=== PATIENT | female | born 1930 | race Caucasian/White ===

== ENCOUNTER 2019-01-03 09:32 | Inpatient (IN) | payer MEDICARE, BC ==
[~2019-01-03] VITALS: Ht 152.4 cm; Wt 70.6 kg
[~2019-01-03 09:32] MED LIST: AMOXICILLIN500 M1 PO; ASCORBIC ACID500 MG PO; ASPIRIN81 MG PO; BETAPACE 80 MG80 MG PO; BREO ELLIPTA 11 EACH INH; BUMETANIDE0.5 MG PO; CALCIUM 600 +1 EAC3 PO; CARDIZEM CD180 MG PO; COZAAR100 MG PO; DEPAKOTE250 MG PO; FLORANEX / LACT1 TAB PO; HYDRALAZINE HCL50 MG PO; HYDROCHLOROTH12.5 M1 PO; KLOR-CON M2020 MEQ PO; LASIX40 MG PO; LEVAQUIN750 MG PO; MOBIC7.5 MG PO; PROZAC10 MG PO; SEROQUEL100 MG PO; TOZAL SOFTGEL1 EACH PO; VITAMIN B-12500 MCG PO; VITAMIN D2000 UNIT PO; ZYRTEC10 MG PO
[2019-01-03] MEDS ORDERED: VITAMIN D31000 UNI2 PO (09:39)
[2019-01-03] MEDS ORDERED: CLARITIN 10 MG10 MG PO (09:40)
[2019-01-03] MEDS ORDERED: CRANBERRY TAB (09:40)
[2019-01-03] MEDS ORDERED: FUROSEMIDE20 MG PO (09:41)
[2019-01-03] MEDS ORDERED: PROTONIX40 MG PO (09:43)
[2019-01-03] MEDS ORDERED: TOPAMAX50 MG PO (09:44)
[2019-01-03] MEDS ORDERED: ZOLOFT100 MG PO (09:45)
[2019-01-03] MEDS ORDERED: ATIVAN0.5 MG PO (09:46)
[2019-01-03] MEDS ORDERED: RESTASIS EACH EYE (09:49)
[2019-01-03] MEDS ORDERED: DEPAKOTE SPRIN125 MG PO (09:53)
[2019-01-03] MEDS ORDERED: CATAPRES0.1 MG PO (09:54)
[2019-01-03] MEDS ORDERED: ALBUTEROL SULF8.5 GM INH (09:55)
--- NOTE | 2019-01-03 10:23 | NUR ---
FSBS 91.
--- NOTE | 2019-01-03 10:24 | NUR ---
IN AND OUT CATH FOR URINE, PATIENT ALLERGIC TO BETADINE, CLEANED WITH WOUD CLENSER, SAMPLE OBTAINED AND SENT TO LAB. PATIENT ROLLED AND CLEANED, BI LAT BUTTOCKS VERY RED, CLEAN ADULT DIAPER PLACED ON PATIENT.
[2019-01-03 10:33] LABS: HEMATOCRIT 38.3 % (36.0-48.0); HEMOGLOBIN 13.2 g/dL (12-16); LYMPHOCYTES 16.5 % (15-50); MCH 32.7 pg (26.0-34.0); MCHC 34.5 g/dL (31.0-37.0); MCV 94.8 fL (80.0-100.0); MEAN PLATELET VOLUME 9.7 fL (7.4-10.4); NEUTROPHILS 72.1 % (40-80); PLATELET COUNT 188 10x3/uL (130-400); RBC 4.04 10x6/uL (4.00-5.40); RDW 12.9 % (11.5-14.5); WBC 10.7 10x3/uL (4.8-10.8)
[2019-01-03 10:35] LABS: APPEARANCE CLEAR (CLEAR); BILIRUBIN NEGATIVE (NEGATIVE); COLOR YELLOW (YELLOW); GLUCOSE NEGATIVE (NEGATIVE); KETONE NEGATIVE (NEGATIVE); NITRITE NEGATIVE (NEGATIVE); PROTEIN NEGATIVE (NEGATIVE); SPECIFIC GRAVITY 1.015 (1.005-1.020); UROBILINOGEN NORMAL (NORMAL)
[2019-01-03 10:36] LABS: RED CELLS - URINE RARE /hpf (0-5)
[2019-01-03 10:38] LABS: UDS - AMPHET NEGATIVE QUAL (NEGATIVE); UDS - BARB NEGATIVE QUAL (NEGATIVE); UDS - BENZO NEGATIVE QUAL (NEGATIVE); UDS - COCAINE NEGATIVE QUAL (NEGATIVE); UDS - OPIATE NEGATIVE QUAL (NEGATIVE); UDS - PCP NEGATIVE QUAL (NEGATIVE); UDS - THC NEGATIVE QUAL (NEGATIVE)
[2019-01-03 10:45] LABS: APTT 25.7 SECONDS (22.8-39.4); PROTIME 12.7 SECONDS (11.6-15.0)
[2019-01-03 10:59] LABS: ALBUMIN 3.6 g/dL (3.4-5.0); ALKALINE PHOSPHATASE 115 U/L (46-116); ALT (SGPT) 21 U/L (10-68); BILIRUBIN - TOTAL 0.55 mg/dL (0.2-1.3); CALC OSMOLALITY 292 mosm/kg (275-300); CALCIUM 8.9 mg/dL (8.5-10.1); CARBON DIOXIDE 29.7 mmol/L (21.0-32.0); CHLORIDE - SERUM 108 mmol/L (98-107); CKMB 1.1 U/L (0.0-3.6); CREATINE KINASE 49 UL (21-215); CREATININE - SERUM 2.1 mg/dL (0.6-1.3); GLUCOSE 94 mg/dL (74-106); MAGNESIUM - SERUM 1.5 mg/dL (1.8-2.4); PROTEIN - SERUM 7.1 g/dL (6.4-8.2); SODIUM 145 mmol/L (136-145); THYROID STIMULATING HORMONE 1.22 uIU/mL (0.36-3.74); TROPONIN-I 0.028 ng/mL (0.000-0.060); UREA NITROGEN 25 mg/dL (7-18); VALPROIC ACID (DEPAKOTE) 14.4 ug/mL (50.0-100.0); eGFR NON AFRICAN AMERICAN 23 mL/min (90-120)
[2019-01-03 11:01] LABS: POTASSIUM - SERUM 2.8 mmol/L (3.5-5.1)
--- NOTE | 2019-01-03 12:07 | NUR ---
PATIENT ROLLED AND CLEANED, SMALL AMOUNT LOOSE STOOL, CLEAN DIAPER AND LINENS PLACED ON PATIENT.
[2019-01-03 15:45] VITALS: BP 162/77; Ht 152.4 cm; Wt 70.6 kg
[2019-01-03 18:15] VITALS: BP 133/60
--- NOTE | 2019-01-03 19:15 | NUR ---
EVENING ROUNDS COMPLETED. PATIENT RESTING IN BED WITH EYES CLOSED. RESPONDS TO VOICE. NO SIGNS OF DISTRESS. NO C/O PAIN OR DISCOMFORT. DENIES HAVING ANY NEEDS AT THIS TIME. WILL CONTINUE TO MONITOR.
[2019-01-03 19:42] VITALS: BP 170/73
[2019-01-03 23:49] VITALS: BP 120/60
--- NOTE | 2019-01-04 04:00 | NUR ---
PATIENT RESTING IN BED WITH EYES CLOSED. NO SIGNS OF DISTRESS. BED IN LOWEST POSITION. SIDE RAILS UP. CALL LIGHT IN REACH. WILL CONTINUE TO MONITOR.
[2019-01-04 04:48] VITALS: BP 160/66
[2019-01-04 06:09] LABS: BASOPHILS 0.2 % (0-2); HEMATOCRIT 35.4 % (36.0-48.0); HEMOGLOBIN 11.6 g/dL (12-16); IMMATURE GRANULOCYTES 0.2 % (0-5); LYMPHOCYTES 15.6 % (15-50); MCH 32.3 pg (26.0-34.0); MCHC 32.8 g/dL (31.0-37.0); MEAN PLATELET VOLUME 10.6 fL (7.4-10.4); MONOCYTES 11.5 % (2-11); NEUTROPHILS 70.5 % (40-80); PLATELET COUNT 176 10x3/uL (130-400); RBC 3.59 10x6/uL (4.00-5.40); RDW 13.3 % (11.5-14.5); WBC 8.5 10x3/uL (4.8-10.8)
[2019-01-04 06:12] LABS: MCV 98.6 fL (80.0-100.0)
[2019-01-04 06:47] LABS: ANION GAP 10.4 mmol/L (8-16); CALCIUM 8.6 mg/dL (8.5-10.1); CARBON DIOXIDE 27.2 mmol/L (21.0-32.0); MAGNESIUM - SERUM 1.5 mg/dL (1.8-2.4); POTASSIUM - SERUM 3.6 mmol/L (3.5-5.1)
[2019-01-04 09:04] VITALS: BP 169/68
[2019-01-04] MEDS ORDERED: ANUSOL-HC 2.5%30 GM RC (12:58)
[2019-01-04 12:59] VITALS: BP 153/59
[2019-01-04] MEDS ORDERED: MAG-OX 400 MG400 MG PO (12:59)
--- NOTE | 2019-01-04 16:24 | MORECARE ---
CASE MANAGEMENT DISCHARGE SUMMARY PATIENT: JEREMIAS VANCE UNIT: [id number] ADM DATE: 01/03/19 AGE: 88 : [birth year] SEX: F ROOM/BED: D.2111 AUTHOR: BRYCE ALVARADO PHYSICIAN: REFERRING PHYSICIAN: SALUD CAREY MD DATE OF SERVICE: 01/04/19 Discharge Plan Patient Name: JEREMIAS VANCE Facility: [facility]:[place] : 1930 Planned Disposition: Jail Facility Anticipated Discharge Date: 01/05/19 Discharge Date: Expected LOS: 2 Initial Reviewer: [id number] Initial Review Date: 01/03/2019 Generated: 01/04/19 5:24 pm External Providers [facility] Next Contact Date: 01/04/2019 Service Request Date: Service Type: Resolution: Reviewer: Comments: Coverage Notice Reviewer: [id number] Sudhir Morse Notice Issued Date-Time: 01/04/2019 16:00 Notice Type: Patient Choice Letter Notice Delivered To: Family Member Relationship to Patient: Back Maker Name: Delivery Method: HAND - Hand Delivered Rima Days: Prior Verbal Notification: Recipient Understood Notice: Yes Recipient Signature: Yes Med Rec Note Co-signed by Attending: Coverage Notice Comment: [facility] #1 [facility] #2 Patient Name: JEREMIAS VANCE Page 35742 at 1624 All edits/amendments must be made on the electronic document DICTATION DATE: 01/04/191623 DISTRIBUTION CENTER ADMINISTRATOR: LIVIER 01/04/191623 RPT#: [id number] DC DATE: STATUS: ADM IN [facility] [address] [place] [address] END OF REPORT
--- NOTE | 2019-01-04 16:47 | MORECARE ---
CASE MANAGEMENT DISCHARGE SUMMARY PATIENT: JEREMIAS VANCE UNIT: [id number] ADM DATE: 01/03/19 AGE: 88 : [birth year] SEX: F ROOM/BED: D.[facility]2 AUTHOR: CHRISTIANO,DOC PHYSICIAN: REFERRING PHYSICIAN: SALUD CAREY MD DATE OF SERVICE: 01/04/19 Discharge Plan Patient Name: JEREMIAS VANCE Facility: [facility]:[place] : 1930 Planned Disposition: Custodial Facility Anticipated Discharge Date: 01/05/19 Discharge Date: Expected LOS: 2 Initial Reviewer: [id number] Initial Review Date: 01/03/2019 Generated: 01/04/19 5:47 pm DCPIA - Discharge Planning Initial Assessment Updated by [email or web address]: Burt Morse on 01/04/19 4:41 pm * Is the patient Alert and Oriented? Yes * How many steps to enter\exit or inside your home? NONE * PCP DR STERN * [facility] * Preadmission Environment [facility] * Facility Name [facility] * ADLs Partial Dependent * Partial ADLs (Assistance needed) Bathing Medication Management Toileting Transfers * Equipment Rolling Walker * Other Equipment ALL MEDICAL EQUIPMENT PROVIDED BY FACILITY * List name and contact numbers for known caregivers / representatives who currently or will assist patient after discharge: CHRISTO VANCE, R, * Verbal permission to speak to the caregivers and representatives has been obtained from the patient. Yes * Community resources currently utilized None * Please name any agencies selected above. NONE * Additional services required to return to the preadmission environment? No * Can the patient safely return to the preadmission environment? Yes * Has this patient been hospitalized within the prior 30 days at any hospital? No Coverage Notice Reviewer: [id number] - Burt Morse Notice Issued Date-Time: 01/04/2019 16:00 Notice Type: Patient Choice Letter Notice Delivered To: Family Member Relationship to Patient: Separator Tender Name: Delivery Method: HAND - Hand Delivered Rima Days: Prior Verbal Notification: Recipient Understood Notice: Yes Recipient Signature: Yes Med Rec Note Co-signed by Attending: Coverage Notice Comment: [facility] #1 [facility] Last DP export: 10/22/19 3:24 Patient Name: JERMEIAS VANCE Page [phone] at 1647 All edits/amendments must be made on the electronic document DICTATION DATE: 01/04/191646 FIRE TRUCK DRIVER: LIVIER 01/04/191646 RPT#: [id number] DC DATE: STATUS: ADM IN [facility] [address] [place] [address] END OF REPORT
--- NOTE | 2019-01-04 17:03 | MORECARE ---
CASE MANAGEMENT DISCHARGE SUMMARY PATIENT: JEREMIAS VANCE UNIT: [id number] ADM DATE: 01/03/19 AGE: 88 : [birth year] SEX: F ROOM/BED: D.7772 AUTHOR: CHRISTIANO,DOC PHYSICIAN: REFERRING PHYSICIAN: SALUD CAREY MD DATE OF SERVICE: 01/04/19 Discharge Plan Patient Name: JEREMIAS VANCE Facility: [facility]:[place] : 1930 Planned Disposition: Long-Term Facility Anticipated Discharge Date: 01/05/19 Discharge Date: Expected LOS: 2 Initial Reviewer: [id number] Initial Review Date: 01/03/2019 Generated: 01/04/19 6:03 pm Comments DCP- Discharge Planning Updated by [id number]: Burt Morse on 01/04/19 3:[address] Patient Name: JEREMIAS VANCE Admission Status: ER Accout number: [id number] Admission Date: 01-03-2019 : 1930 Admission Diagnosis: Attending: SALUD CAREY Current LOS: 1 Anticipated DC Date: 01-05-2019 Planned Disposition: Long-Term Facility Primary Insurance: MEDICARE A & B PLANNED EXTERNAL PROVIDER: NICOLE NGUYỄN, FRUIT GRADER OPERATOR [facility] PRIVATE PAY BED Discharge Planning Comments: CM RECEIVED DISCHARGE ORDER, SPOKE TO PT IN ROOM REGARDING DISCHARGE PLANNING AND NEEDS. PT REPORTS SHE IS LIVING AT THE [facility] AND TO CALL HER DAUGHTER. CM CALLED CHRISTO VANCE, . CM ADVISED THAT PT WAS DISCHARGED TO RETURN TO HER [facility]ARE AT THE [facility]. CHRISTO REFUSED REPORTING PT IS GETTING BAD CARE THERE AND SHE WANTS PT IN A DIFFERENT NURSING FACILITY. CHRISTO ASKED CM TO RECOMMEND [facility]. CM EXPLAINED THAT CM CANNOT RECOMMEND AND OFFERED TO LIST WHAT NURSING HOMES ARE AVAILABLE IN [facility]. CHRISTO STATED SHE WOULD BE TO HOSPITAL IN 45 MINUTES TO DISCUSS THIS AT THAT TIME. CHRISTO VANCE LATER ARRIVED TO PT'S ROOM. CM MET WITH CHRISTO IN PT'S ROOM, CM PROVIDED CHRISTO WITH LISTING OF ALL JAIL FACILITIES WITHIN 25 MILES OF [place] FROM THE MEDICARE WEBSITE WITH CURRENT RATINGS FROM MEDICARE. AFTER REVIEW, CHRISTO COMPLETED CHOICE FOR 1 - [facility] AND 2- [facility]. CHRISTO REPORTS THAT IF [facility] WILL NOT ACCEPT TO THEN SEND REFERRAL TO [facility]. CHRISTO ASKED IF PT IS STAYING THE NIGHT HERE, CM EXPLAINED THAT SHE IS REFUSING TO DISCHARGE PT TO THE [facility], CM WILL HAVE TO SECURE PLACEMENT. CHRISTO IS NOT SURE OF WHAT CATAGORY OF BED PT IS IN AT THE [facility] BUT REPORTS PAYING $10,000 PER MONTH FOR PT'S CARE AND WANTS CM TO GET PT INTO A MEDICARE REHAB BED AT [facility]. CM CALLED [facility], SPOKE TO OBDULIO WHO ADVISED PT IS IN [facility] PRIVATE PAY BED AND THAT PT DOES NOT HAVE A ISHMAEL, BUT WAS DIAGNOSED WITH MAJOR DEPRESSION BY DR. STERN AT THE [facility] IN April,. PT WILL REQUIRE ISHMAEL APPROVAL TO ENTER JAIL FACILITY. CM CALLED AND SPOKE TO CONY OF [facility], , PROVIDED REFERRAL INFORMATION. CM NOTIFIED CONY OF DAUGHTERS REQUEST FOR REHAB. CM FAXED REFERRAL TO [facility] AT [phone]. CM ATTEMPTED TO MEET WITH PT'S DAUGHTER IN ROOM TO NOTIFY THAT ISHMAEL SCREENING IS REQUIRED, SHE HAD LEFT. CM TO COMPLETE AND SUBMIT ISHMAEL SCREENING AND SUBMIT SOON POSSIBLE. CM WAITING ADMISSION DETERMINATION FROM [facility]. Glass Forming Engineer: Burt Morse DCPIA - Discharge Planning Initial Assessment Updated by [email or web address]: Burt Morse on 01/04/19 4:41 pm * Is the patient Alert and Oriented? Yes * How many steps to enter\exit or inside your home? NONE * PCP DR STERN * [facility] * Preadmission Environment [employer] * Facility Name [facility] * ADLs Partial Dependent * Partial ADLs (Assistance needed) Bathing Medication Management Toileting Transfers * Equipment Rolling Walker * Other Equipment ALL MEDICAL EQUIPMENT PROVIDED BY FACILITY * List name and contact numbers for known caregivers / representatives who currently or will assist patient after discharge: CHRISTO VANCE, DTR, * Verbal permission to speak to the caregivers and representatives has been obtained from the patient. Yes * Community resources currently utilized None * Please name any agencies selected above. NONE * Additional services required to return to the preadmission environment? No * Can the patient safely return to the preadmission environment? Yes * Has this patient been hospitalized within the prior 30 days at any hospital? No Coverage Notice Reviewer: [id number] - Burt Toledowell Notice Issued Date-Time: 01/04/2019 16:00 Notice Type: Patient Choice Letter Notice Delivered To: Family Member Relationship to Patient: Dog Raiser Name: Delivery Method: HAND - Hand Delivered Rima Days: Prior Verbal Notification: Recipient Understood Notice: Yes Recipient Signature: Yes Med Rec Note Co-signed by Attending: Coverage Notice Comment: [facility] #1 [facility] CHRIST[facility] #2 Last DP export: 01/04/19 3:47 Patient Name: JEREMIAS VANCE Page [phone] at 1703 All edits/amendments must be made on the electronic document DICTATION DATE: 01/04/191701 SPECIMEN COLLECTOR: LIVIER 01/04/191701 RPT#: [id number] DC DATE: STATUS: ADM IN [facility] [address] [place] [address] END OF REPORT
--- NOTE | 2019-01-04 19:00 | NUR ---
EVENING ROUNDS COMPLETE. PT LAYING IN BED. NO SIGNS OF DISTRESS. PT DENIES ANY NEEDS OR PAIN AT THIS TIME. CL IN REACH, BED IN LOWEST POSITION.
[2019-01-04 20:00] VITALS: BP 146/51
[2019-01-05] VITALS: BP 151/61
[2019-01-05 04:00] VITALS: BP 166/84
[2019-01-05 06:01] LABS: BASOPHILS 0.2 % (0-2); EOSINOPHILS 1.9 % (0-7); HEMATOCRIT 38.7 % (36.0-48.0); HEMOGLOBIN 12.8 g/dL (12-16); IMMATURE GRANULOCYTES 0.2 % (0-5); LYMPHOCYTES 18.1 % (15-50); MCH 32.5 pg (26.0-34.0); MCHC 33.1 g/dL (31.0-37.0); MCV 98.2 fL (80.0-100.0); MEAN PLATELET VOLUME 10.4 fL (7.4-10.4); MONOCYTES 11.4 % (2-11); NEUTROPHILS 68.2 % (40-80); PLATELET COUNT 196 10x3/uL (130-400); RBC 3.94 10x6/uL (4.00-5.40); RDW 13.2 % (11.5-14.5); WBC 9.4 10x3/uL (4.8-10.8)
--- NOTE | 2019-01-05 06:11 | NUR ---
PT REMOVED TELE. TEACHING ON IMPORTANCE OF MONITOR. PT REFUSING TELE AT THIS TIME.
[2019-01-05 06:19] LABS: ANION GAP 8.1 mmol/L (8-16); CALCIUM 9.3 mg/dL (8.5-10.1); CARBON DIOXIDE 30.2 mmol/L (21.0-32.0); CREATININE - SERUM 1.7 mg/dL (0.6-1.3); POTASSIUM - SERUM 3.3 mmol/L (3.5-5.1)
--- NOTE | 2019-01-05 07:58 | NUR ---
UPON ENTERING ROOM, PT BED ALARM WAS GOING OFF. PT WAS IN PROCESS OF GETTING BACK IN BED FROM GOING TO BATHROOM. STEADY GAIT. PT ASSISTED BACK IN BED AND EDUCATED TO STAY IN BED AND CALL FOR ASSISTANCE TO BATHROOM. RR EVEN AND UNLABORED. DENIES NEEDS OR PAIN AT THIS TIME. WILL CONTINUE TO MONITOR.
--- NOTE | 2019-01-05 07:59 | MORECARE ---
CASE MANAGEMENT DISCHARGE SUMMARY PATIENT: JEREMIAS VANCE UNIT: [id number] ADM DATE: 01/03/19 AGE: 88 : [birth year] SEX: F ROOM/BED: D.2 AUTHOR: CHRISTIANO,DOC PHYSICIAN: REFERRING PHYSICIAN: SALUD CAREY MD DATE OF SERVICE: 01/05/19 Discharge Plan Patient Name: JEREMIAS VANCE Facility: [facility]:[place] : 1930 Planned Disposition: Group Home Facility Anticipated Discharge Date: 01/05/19 Discharge Date: Expected LOS: 2 Initial Reviewer: [id number] Initial Review Date: 01/03/2019 Generated: 01/05/19 8:59 am Comments DCP- Discharge Planning Updated by [id number]: Burt Morse on 01/05/19 6:[address] Patient Name: JEREMIAS VANCE Encounter No: [id number] : 1930 Primary Insurance: MEDICARE A & B Anticipated DC Date: 01-05-2019 Planned Disposition: Group Home Facility External Planned Provider: [facility] PAY BED Discharge Planning Comments: CM COMPLETED ISHMAEL SCREENING WITH ASSITANCE OF PT IN ROOM. PT'S DAUGHTER NOT PRESENT TO SIGN, PT REPORTS BEING UNABLE TO SIGN. CM OBTAINED SIGNATURE FROM DARIAN CESPEDES. CM FAXED SCREENING AND REQUIRED MEDICAL DOCUMENTS TO [employer] AT [phone]. CM WAITING ISHMAEL SCREENING RESULT. CM WAITING ADMISSION DETERMINATION FROM [facility]. Seat Nailer: uBrt Morse DCP- Discharge Planning Updated by [email or web address]: Burt Morse on 01/04/19 3:[address] Patient Name: JEREMIAS VANCE Admission Status: ER Accout number: [id number] Admission Date: 01-03-2019 : 1930 Admission Diagnosis: Attending: SALUD CAREY Current LOS: 1 Anticipated DC Date: 01-05-2019 Planned Disposition: Group Home Facility Primary Insurance: MEDICARE A & B PLANNED EXTERNAL PROVIDER: [facility] PAY BED Discharge Planning Comments: CM RECEIVED DISCHARGE ORDER, SPOKE TO PT IN ROOM REGARDING DISCHARGE PLANNING AND NEEDS. PT REPORTS SHE IS LIVING AT THE [facility] AND TO CALL HER DAUGHTER. CM CALLED CHRISTO VANCE, . CM ADVISED THAT PT WAS DISCHARGED TO RETURN TO HER DETENTION CARE AT THE [facility]. CHRISTO REFUSED REPORTING PT IS GETTING BAD CARE THERE AND SHE WANTS PT IN A DIFFERENT NURSING FACILITY. CHRISTO ASKED CM TO RECOMMEND [facility]. CM EXPLAINED THAT CM CANNOT RECOMMEND AND OFFERED TO LIST WHAT NURSING HOMES ARE AVAILABLE IN [facility]. CHRISTO STATED SHE WOULD BE TO HOSPITAL IN 45 MINUTES TO DISCUSS THIS AT THAT TIME. CHRISTO VANCE LATER ARRIVED TO PT'S ROOM. CM MET WITH CHRISTO IN PT'S ROOM, CM PROVIDED CHRISTO WITH LISTING OF ALL RESIDENTIAL FACILITIES WITHIN 25 MILES OF [place] FROM THE MEDICARE WEBSITE WITH CURRENT RATINGS FROM MEDICARE. AFTER REVIEW, CHRISTO COMPLETED CHOICE FOR 1 - [facility] AND 2- [facility]. CHRISTO REPORTS THAT IF [facility] WILL NOT ACCEPT TO THEN SEND REFERRAL TO [facility]. CHRISTO ASKED IF PT IS STAYING THE NIGHT HERE, CM EXPLAINED THAT SHE IS REFUSING TO DISCHARGE PT TO THE [facility], CM WILL HAVE TO SECURE PLACEMENT. CHRISTO IS NOT SURE OF WHAT CATAGORY OF BED PT IS IN AT THE [facility] BUT REPORTS PAYING $10,000 PER MONTH FOR PT'S CARE AND WANTS CM TO GET PT INTO A MEDICARE REHAB BED AT [facility]. CM CALLED [facility], SPOKE TO OBDULIO WHO ADVISED PT IS IN DUST COLLECT[facility] PRIVATE PAY BED AND THAT PT DOES NOT HAVE A ISHMAEL, BUT WAS DIAGNOSED WITH MAJOR DEPRESSION BY DR. STERN AT THE ALF IN April,. PT WILL REQUIRE ISHMAEL APPROVAL TO ENTER RESIDENTIAL FACILITY. CM CALLED AND SPOKE TO CONY OF [facility], , PROVIDED REFERRAL INFORMATION. CM NOTIFIED CONY OF DAUGHTERS REQUEST FOR REHAB. CM FAXED REFERRAL TO [facility] AT [phone]. CM ATTEMPTED TO MEET WITH PT'S DAUGHTER IN ROOM TO NOTIFY THAT ISHMAEL SCREENING IS REQUIRED, SHE HAD LEFT. CM TO COMPLETE AND SUBMIT ISHMAEL SCREENING AND SUBMIT SOON POSSIBLE. CM WAITING ADMISSION DETERMINATION FROM [facility]. Seat Nailer: Burt Morse DCPIA - Discharge Planning Initial Assessment Updated by [id number]: Burt Morse on 01/04/19 4:41 pm * Is the patient Alert and Oriented? Yes * How many steps to enter\exit or inside your home? NONE * PCP DR STERN * [facility] * Preadmission Environment Group Home Custodial * Facility Name [facility] * ADLs Partial Dependent * Partial ADLs (Assistance needed) Bathing Medication Management Toileting Transfers * Equipment Rolling Walker * Other Equipment ALL MEDICAL EQUIPMENT PROVIDED BY FACILITY * List name and contact numbers for known caregivers / representatives who currently or will assist patient after discharge: CHRISTO VANCE, DTR, * Verbal permission to speak to the caregivers and representatives has been obtained from the patient. Yes * Community resources currently utilized None * Please name any agencies selected above. NONE * Additional services required to return to the preadmission environment? No * Can the patient safely return to the preadmission environment? Yes * Has this patient been hospitalized within the prior 30 days at any hospital? No External Providers External Provider: JULIA Thurman Next Contact Date: 01/05/2019 Service Request Date: Service Type: Resolution: Reviewer: Comments: Coverage Notice Reviewer: [id number] Sudhir Morse Notice Issued Date-Time: 01/04/2019 16:00 Notice Type: Patient Choice Letter Notice Delivered To: Family Member Relationship to Patient: Home Support Worker Name: Delivery Method: HAND - Hand Delivered Rima Days: Prior Verbal Notification: Recipient Understood Notice: Yes Recipient Signature: Yes Med Rec Note Co-signed by Attending: Coverage Notice Comment: [facility] #1 [facility] [place] #2 Last DP export: 01/04/19 4:03 Patient Name: JEREMIAS VANCE Page [phone] at 0759 All edits/amendments must be made on the electronic document DICTATION DATE: 01/05/19758 VARNISH FINISHER: LIVIER 01/05/19758 RPT#: [id number] DC DATE: STATUS: ADM IN [facility] [address] [place] [address] END OF REPORT
--- NOTE | 2019-01-05 08:53 | NUR ---
SPOKE WITH DAUGHTER ON PHONE. DAUGHTER WAS CONCERNED WITH PT "PLAYING OPPOSSUM" BECAUSE SHE IS READY FOR END OF LIFE. UPON ENTERING ROOM TO HAVE PT TALK WITH DAUGHTER OVER TELEPHONE, PT WAS NOT RESPONDING TO VOICE OR STERNAL RUB BUT EYES WERE MOVING. OXYGEN SAT 91% RA. PLACED BACK ON 2L. WARM TO TOUCH. PT WAS ABLE TO OPEN EYES AND LOOK AROUND AND THEN CLOSED EYES AGAIN . ABLE TO SQUEEZE HAND, EQUAL GLOVE PRESSER BILAT. WILL NOTIFY DARIAN ATKINSON
--- NOTE | 2019-01-05 10:15 | NUR ---
FACESHEET AND ORDER FOR GERIATRIC PSYCH CONSULT FAXED TO [facility].
[2019-01-05 11:06] VITALS: BP 141/84
--- NOTE | 2019-01-05 11:48 | MORECARE ---
CASE MANAGEMENT DISCHARGE SUMMARY PATIENT: JEREMIAS VANCE UNIT: [id number] ADM DATE: 01/03/19 AGE: 88 : [birth year] SEX: F ROOM/BED: D.6334 AUTHOR: CHRISTIANO,DOC PHYSICIAN: REFERRING PHYSICIAN: SALUD CAREY MD DATE OF SERVICE: 01/05/19 Discharge Plan Patient Name: JEREMIAS VANCE Facility: [facility]:[place] : 1930 Planned Disposition: Assisted Facility Anticipated Discharge Date: 01/05/19 Discharge Date: Expected LOS: 2 Initial Reviewer: [id number] Initial Review Date: 01/03/2019 Generated: 01/05/19 12:47 pm Comments DCP- Discharge Planning Updated by [id number]: Burt Morse on 01/05/19 10:[address] Patient Name: JEREMIAS VANCE Encounter No: [id number] : 1930 Primary Insurance: MEDICARE A & B Anticipated DC Date: 01-05-2019 Planned Disposition: Assisted Facility External Planned Provider: [facility] PAY BED Discharge Planning Comments: CM RECEIVED ISHMAEL APPROVAL FOR ENTRY INTO NURSING FACILITY. CM FAXED [place] ASSESSMENT AND APPROVAL LETTER TO [facility] AT [phone]. ISHMAEL APPROVED, WAITING ADMISSION DETERMINATION FROM [facility]. Sample Grinder: Burt Morse DCP- Discharge Planning Updated by [id number]: Burt Morse on 01/05/19 6:[address] Patient Name: JEREMIAS VANCE Encounter No: [id number] : 1930 Primary Insurance: MEDICARE A & B Anticipated DC Date: 01-05-2019 Planned Disposition: Assisted Facility External Planned Provider: [facility] PAY BED Discharge Planning Comments: CM COMPLETED ISHMAEL SCREENING WITH ASSITANCE OF PT IN ROOM. PT'S DAUGHTER NOT PRESENT TO SIGN, PT REPORTS BEING UNABLE TO SIGN. CM OBTAINED SIGNATURE FROM DARIAN CESPEDES. CM FAXED SCREENING AND REQUIRED MEDICAL DOCUMENTS TO [facility] AT [phone]. CM WAITING ISHMAEL SCREENING RESULT. CM [facility]. Sample Grinder: Burt Morse DCP- Discharge Planning Updated by [id number]: Burt Morse on 01/04/19 3:[address] Patient Name: JEREMIAS VANCE Admission Status: ER Accout number: [id number] Admission Date: 01-03-2019 : 1930 Admission Diagnosis: Attending: SALUD CAREY Current LOS: 1 Anticipated DC Date: 01-05-2019 Planned Disposition: Assisted Facility Primary Insurance: MEDICARE A & B PLANNED EXTERNAL PROVIDER: [facility], [facility] PAY BED Discharge Planning Comments: CM RECEIVED DISCHARGE ORDER, SPOKE TO PT IN ROOM REGARDING DISCHARGE PLANNING AND NEEDS. PT REPORTS SHE IS LIVING AT THE [facility] AND TO CALL HER DAUGHTER. CM CALLED CHRISTO VANCE, . CM ADVISED THAT PT WAS DISCHARGED TO RETURN TO HER PRISON CARE AT [facility]. CHRISTO REFUSED REPORTING PT IS GETTING BAD CARE THERE AND SHE WANTS PT IN A DIFFERENT NURSING FACILITY. CHRISTO ASKED CM TO RECOMMEND THE BEST NURSNG FACILITY. CM EXPLAINED THAT CM CANNOT RECOMMEND AND OFFERED TO LIST WHAT NURSING HOMES ARE AVAILABLE IN [facility]. CHRISTO STATED SHE WOULD BE TO HOSPITAL IN 45 MINUTES TO DISCUSS THIS AT THAT TIME. CHRISTO VANCE LATER ARRIVED TO PT'S ROOM. CM MET WITH CHRISTO IN PT'S ROOM, CM PROVIDED CHRISTO WITH LISTING OF ALL USP FACILITIES WITHIN 25 MILES OF [place] FROM THE MEDICARE WEBSITE WITH CURRENT RATINGS FROM MEDICARE. AFTER REVIEW, CHRISTO COMPLETED CHOICE FOR 1 - [facility] AND 2- [facility]. CHRISTO REPORTS THAT IF [facility] WILL NOT ACCEPT TO THEN SEND REFERRAL TO [facility]. CHRISTO ASKED IF PT IS STAYING THE NIGHT HERE, CM EXPLAINED THAT SHE IS REFUSING TO DISCHARGE PT TO THE [facility], CM WILL HAVE TO SECURE PLACEMENT. CHRISTO IS NOT SURE OF WHAT CATAGORY OF BED PT IS IN AT THE [facility] BUT REPORTS PAYING $10,000 PER MONTH FOR PT'S CARE AND WANTS CM TO GET PT INTO A MEDICARE REHAB BED AT [facility]. CM CALLED THE [facility], SPOKE TO OBDULIO WHO ADVISED PT IS IN [facility] AND THAT PT DOES NOT HAVE A ISHMAEL, BUT WAS DIAGNOSED WITH MAJOR DEPRESSION BY DR. STERN AT THE [facility] IN April,. PT WILL REQUIRE ISHMAEL APPROVAL TO ENTER USP FACILITY. CM CALLED AND SPOKE TO CONY OF [facility], , PROVIDED REFERRAL INFORMATION. CM NOTIFIED CONY OF DAUGHTERS REQUEST FOR REHAB. CM FAXED REFERRAL TO [facility] AT [phone]. CM ATTEMPTED TO MEET WITH PT'S DAUGHTER IN ROOM TO NOTIFY THAT ISHMAEL SCREENING IS REQUIRED, SHE HAD LEFT. CM TO COMPLETE AND SUBMIT ISHMAEL SCREENING AND SUBMIT SOON POSSIBLE. CM WAITING ADMISSION DETERMINATION FROM [facility]. Sample Grinder: Burt Morse DCPIA - Discharge Planning Initial Assessment Updated by [id number]: Burt Morse on 01/04/19 4:41 pm * Is the patient Alert and Oriented? Yes * How many steps to enter\exit or inside your home? NONE * PCP DR STERN * [facility] * Preadmission Environment [place] [facility] * Facility Name [facility] * ADLs Partial Dependent * Partial ADLs (Assistance needed) Bathing Medication Management Toileting Transfers * Equipment Rolling Walker * Other Equipment ALL MEDICAL EQUIPMENT PROVIDED BY FACILITY * List name and contact numbers for known caregivers / representatives who currently or will assist patient after discharge: CHRISTO VANCE, DTR, * Verbal permission to speak to the caregivers and representatives has been obtained from the patient. Yes * Community resources currently utilized None * Please name any agencies selected above. NONE * Additional services required to return to the preadmission environment? No * Can the patient safely return to the preadmission environment? Yes * Has this patient been hospitalized within the prior 30 days at any hospital? No Coverage Notice Reviewer: [id number] - Burt Morse Notice Issued Date-Time: 01/04/2019 16:00 Notice Type: Patient Choice Letter Notice Delivered To: Family Member Relationship to Patient: Orange Picker Machine Operator Name: Delivery Method: HAND - Hand Delivered Rima Days: Prior Verbal Notification: Recipient Understood Notice: Yes Recipient Signature: Yes Med Rec Note Co-signed by Attending: Coverage Notice Comment: [facility] #1 [facility] #2 Last DP export: 01/05/19 6:59 Patient Name: JEREMIAS VANCE Page [id number] at 1148 All edits/amendments must be made on the electronic document DICTATION DATE: 01/05/191146 ELECTRIC METER INSTALLER HELPER: DM 01/05/191146 RPT#: [id number] DC DATE: STATUS: ADM IN [facility] [address] [place] [address] END OF REPORT
[2019-01-05 15:09] VITALS: BP 161/65
--- NOTE | 2019-01-05 15:11 | MORECARE ---
CASE MANAGEMENT DISCHARGE SUMMARY PATIENT: JEREMIAS VANCE UNIT: [id number] ADM DATE: 01/03/19 AGE: 88 : [birth year] SEX: F ROOM/BED: D.7739 AUTHOR: CHRISTIANO,DOC PHYSICIAN: REFERRING PHYSICIAN: SALUD CAREY MD DATE OF SERVICE: 01/05/19 Discharge Plan Patient Name: JEREMIAS VANCE Facility: [facility]:[place] : 1930 Planned Disposition: Nursing Facility ADDIE Cert Anticipated Discharge Date: 01/05/19 Discharge Date: Expected LOS: 2 Initial Reviewer: [id number] Initial Review Date: 01/03/2019 Generated: 01/05/19 4:10 pm Comments DCP- Discharge Planning Updated by [id number]: Burt Morse on 01/05/19 10:[address] Patient Name: JEREMIAS VANCE Encounter No: [id number] : 1930 Primary Insurance: MEDICARE A & B Anticipated DC Date: 01-05-2019 Planned Disposition: Longterm Facility External Planned Provider: [facility] PAY BED Discharge Planning Comments: CM RECEIVED ISHMAEL APPROVAL FOR ENTRY INTO NURSING FACILITY. CM FAXED PICKENS ASSESSMENT AND APPROVAL LETTER TO [facility] AT [phone]. ISHMAEL APPROVED, WAITING ADMISSION DETERMINATION FROM [facility][NOTE 3]. Ship Washer: Burt Morse DCP- Discharge Planning Updated by [email or web address]: Burt Morse on 01/05/19 6:[address] Patient Name: JEREMIAS VANCE Encounter No: [id number] : 1930 Primary Insurance: MEDICARE A & B Anticipated DC Date: 01-05-2019 Planned Disposition: Longterm Facility External Planned Provider: [facility] PA[facility] BED Discharge Planning Comments: CM COMPLETED ISHMAEL SCREENING WITH ASSITANCE OF PT IN ROOM. PT'S DAUGHTER NOT PRESENT TO SIGN, PT REPORTS BEING UNABLE TO SIGN. CM OBTAINED SIGNATURE FROM DARIAN CESPEDES. CM FAXED SCREENING AND REQUIRED MEDICAL DOCUMENTS TO [facility] AT [phone]. CM WAITING ISHMAEL SCREENING RESULT. CM [facility] Ship Washer: Burt Morse DCP- Discharge Planning Updated by [id number]: Burt Toledowell on 01/04/19 3:[address] Patient Name: JEREMIAS VANCE Admission Status: ER Accout number: [id number] Admission Date: 01-03-2019 : 1930 Admission Diagnosis: Attending: SALUD CAREY Current LOS: 1 Anticipated DC Date: 01-05-2019 Planned Disposition: Longterm Facility Primary Insurance: MEDICARE A & B PLANNED EXTERNAL PROVIDER: [facility], [facility] PAY BED Discharge Planning Comments: CM RECEIVED DISCHARGE ORDER, SPOKE TO PT IN ROOM REGARDING DISCHARGE PLANNING AND NEEDS. PT REPORTS SHE IS LIVING AT THE [facility] AND TO CALL HER DAUGHTER. CM CALLED CHRISTO VANCE, . CM ADVISED THAT PT WAS DISCHARGED TO RETURN TO HER SNF CARE AT [facility]. CHRISTO REFUSED REPORTING PT IS GETTING BAD CARE THERE AND SHE WANTS PT IN A DIFFERENT NURSING FACILITY. CHRISTO ASKED CM TO RECOMMEND THE BEST NURSNG FACILITY. CM EXPLAINED THAT CM CANNOT RECOMMEND AND OFFERED TO LIST WHAT NURSING HOMES ARE AVAILABLE IN [facility] [place]. CHRISTO STATED SHE WOULD BE TO HOSPITAL IN 45 MINUTES TO DISCUSS THIS AT THAT TIME. CHRISTO VANCE LATER ARRIVED TO PT'S ROOM. CM MET WITH CHRISTO IN PT'S ROOM, CM PROVIDED CHRISTO WITH LISTING OF ALL PENITENTIARY FACILITIES WITHIN 25 MILES OF [place] FROM THE MEDICARE WEBSITE WITH CURRENT RATINGS FROM MEDICARE. AFTER REVIEW, CHRISTO COMPLETED CHOICE FOR 1 - [facility] AND 2- [facility]. CHRISTO REPORTS THAT IF [facility] WILL NOT ACCEPT TO THEN SEND REFERRAL TO [facility]. CHRISTO ASKED IF PT IS STAYING THE NIGHT HERE, CM EXPLAINED THAT SHE IS REFUSING TO DISCHARGE PT TO THE [facility], CM WILL HAVE TO SECURE PLACEMENT. CHRISTO IS NOT SURE OF WHAT CATAGORY OF BED PT IS IN AT THE [facility] BUT REPORTS PAYING $10,000 PER MONTH FOR PT'S CARE AND WANTS CM TO GET PT INTO A MEDICARE REHAB BED AT [facility]. CM CALLED THE [facility], SPOKE TO OBDULIO WHO ADVISED PT IS IN [facility] AND THAT PT DOES NOT HAVE A ISHMAEL, BUT WAS DIAGNOSED WITH MAJOR DEPRESSION BY DR. STERN AT THE [facility] IN April,. PT WILL REQUIRE ISHMAEL APPROVAL TO ENTER PENITENTIARY FACILITY. CM CALLED AND SPOKE TO CONY OF [facility], , PROVIDED REFERRAL INFORMATION. CM NOTIFIED CONY OF DAUGHTERS REQUEST FOR REHAB. CM FAXED REFERRAL TO [facility] AT [phone]. CM ATTEMPTED TO MEET WITH PT'S DAUGHTER IN ROOM TO NOTIFY THAT ISHMAEL SCREENING IS REQUIRED, SHE HAD LEFT. CM TO COMPLETE AND SUBMIT ISHMAEL SCREENING AND SUBMIT SOON POSSIBLE. CM WAITING ADMISSION DETERMINATION FROM [facility]. Ship Washer: Burt Morse DCPIA - Discharge Planning Initial Assessment Updated by [email or web address]: Burt Morse on 01/04/19 4:41 pm * Is the patient Alert and Oriented? Yes * How many steps to enter\exit or inside your home? NONE * PCP DR STERN * [facility] * Preadmission Environment Roving Inspector Shelter * Facility Name [facility] * ADLs Partial Dependent * Partial ADLs (Assistance needed) Bathing Medication Management Toileting Transfers * Equipment Rolling Walker * Other Equipment ALL MEDICAL EQUIPMENT PROVIDED BY FACILITY * List name and contact numbers for known caregivers / representatives who currently or will assist patient after discharge: CHRISTO VANCE, DTR, * Verbal permission to speak to the caregivers and representatives has been obtained from the patient. Yes * Community resources currently utilized None * Please name any agencies selected above. NONE * Additional services required to return to the preadmission environment? No * Can the patient safely return to the preadmission environment? Yes * Has this patient been hospitalized within the prior 30 days at any hospital? No Coverage Notice Reviewer: [id number] - Burt Morse Notice Issued Date-Time: 01/04/2019 16:00 Notice Type: Patient Choice Letter Notice Delivered To: Family Member Relationship to Patient: State Trooper Name: Delivery Method: HAND - Hand Delivered Rima Days: Prior Verbal Notification: Recipient Understood Notice: Yes Recipient Signature: Yes Med Rec Note Co-signed by Attending: Coverage Notice Comment: [facility] #1 [facility]2 Last DP export: 01/05/19 10:48 Patient Name: JEREMIAS VANCE Page [id number] at 1511 All edits/amendments must be made on the electronic document DICTATION DATE: 01/05/191509 PAPER INSERTER: DM 01/05/191509 RPT#: [id number] DC DATE: STATUS: ADM IN [facility] [address] [place] [address] END OF REPORT
--- NOTE | 2019-01-05 15:20 | MORECARE ---
CASE MANAGEMENT DISCHARGE SUMMARY PATIENT: JEREMIAS VANCE UNIT: [id number] ADM DATE: 01/03/19 AGE: 88 : [birth year] SEX: F ROOM/BED: D.9756 AUTHOR: CHRISTIANO,DOC PHYSICIAN: REFERRING PHYSICIAN: SALUD CAREY MD DATE OF SERVICE: 01/05/19 Discharge Plan Patient Name: JEREMIAS VANCE Facility: [facility]:[place] : 1930 Planned Disposition: Nursing Facility ADDIE Cert Anticipated Discharge Date: 01/05/19 Discharge Date: Expected LOS: 2 Initial Reviewer: [id number] Initial Review Date: 01/03/2019 Generated: 01/05/19 4:19 pm Comments DCP- Discharge Planning Updated by [id number]: Burt Morse on 01/05/19 2:[address] Patient Name: JEREMIAS VANCE Encounter No: [id number] : 1930 Primary Insurance: MEDICARE A & B Anticipated DC Date: 01-05-2019 Planned Disposition: Nursing Facility ADDIE Cert External Planned Provider: [facility] PRIVATE PAY BED DCP follow-up note: CM RECEIVED CALL FROM CONY OF [facility], PT HAS BEEN ACCEPTED TO [facility] AND THEY WILL CHISEL TRIMMER BETWEEN 1500 AND 1515 HOURS TODAY. PT'S DAUGHTER IS AT [facility] NOW COMPLETING ADMISSION PAPERWORK. CM NOTIFIED PT AND BEDSIDE NURSE. LEVELER NURSE NOTIFIED. CM RECEIVED CALL FROM CHRISTO VANCE WHO ASKED IF PT COULD STAY ONE MORE NIGHT TO ENABLE HER TO ADMIT TO [facility] UNDER MEDICARE SKILLED BED FOR REHAB SERVICES. CM NOTIFED CHRISTO THAT PT WAS STABLE FOR DISCHARGE YESTERDAY AND THAT KEEPING THE PT IN HOSPITAL WITHOUT NEED FOR MEDICAL TREATMENT WOULD BE MEDICARE FRAUD AND THAT NOT ONLY THE HOSPITAL, BUT THE JAIL COULD BE IN SERIOUS TROUBLE. JERONIMO ALSO POINTED OUT THAT PT REFUSED TO PARTICIPATE IN THERAPY SERVICES DURING THIS ADMISSION. CHRISTO STATES UNDERSTANDING, ASKED THAT THE NURSE BE NOTIFIED TO ENSURE PT GETS HER BAG OF CLOTHING AND BELONGINGS FROM THE CLOSET. CM NOTIFIED BEDSIDE NURSE. CM FAXED DISCHARGE INFORMATION TO [facility] AT [phone]. NURSE REPORT TO BE CALLED TO [facility] AT [phone]. [facility] VAN TO CHISEL TRIMMER PT BETWEEN 1500 AND 1515 HOURS. Burt Morse, CASE MANAGEMENT DCP- Discharge Planning Updated by [id number]: Burt Morse on 01/05/19 10:[address] Patient Name: JEREMIAS VANCE Encounter No: [id number] : 1930 Primary Insurance: MEDICARE A & B Anticipated DC Date: 01-05-2019 Planned Disposition: Alf Facility External Planned Provider: [facility] PRIVATE PAY BED Discharge Planning Comments: CM RECEIVED ISHMAEL APPROVAL FOR ENTRY INTO NURSING FACILITY. CM FAXED ISHMAEL ASSESSMENT AND APPROVAL LETTER TO [facility] AT [phone]. ISHMAEL APPROVED, WA[facility] Primer And Powder Canning Leader: Burt Morse DCP- Discharge Planning Updated by [id number]: Burt Morse on 01/05/19 6:[address] Patient Name: JEREMIAS VANCE Encounter No: [id number] : 1930 Primary Insurance: MEDICARE A & B Anticipated DC Date: 01-05-2019 Planned Disposition: Alf Facility External Planned Provider: [facility] PAY BED Discharge Planning Comments: CM COMPLETED ISHMAEL SCREENING WITH ASSITANCE OF PT IN ROOM. PT'S DAUGHTER NOT PRESENT TO SIGN, PT REPORTS BEING UNABLE TO SIGN. CM OBTAINED SIGNATURE FROM DARIAN CESPEDES. CM FAXED SCREENING AND REQUIRED MEDICAL DOCUMENTS TO [facility] AT [phone]. CM WAITING ISHMAEL SCREENING RESULT. CM WAITING [facility]. Primer And Powder Canning Leader: Burt Morse DCP- Discharge Planning Updated by [id number]: Burt Morse on 01/04/19 3:[address] Patient Name: JEREMIAS VANCE Admission Status: ER Accout number: [id number] Admission Date: 01-03-2019 : 1930 Admission Diagnosis: Attending: SALUD CAREY Current LOS: 1 Anticipated DC Date: 01-05-2019 Planned Disposition: Alf Facility Primary Insurance: MEDICARE A & B PLANNED EXTERNAL PROVIDER: [facility] PRIVATE PAY BED Discharge Planning Comments: CM RECEIVED DISCHARGE ORDER, SPOKE TO PT IN ROOM REGARDING DISCHARGE PLANNING AND NEEDS. PT REPORTS SHE IS LIVING AT THE [facility] AND TO CALL HER DAUGHTER. CM CALLED CHRISTO VANCE, . CM ADVISED THAT PT WAS DISCHARGED TO RETURN TO HER [facility] CARE AT THE [facility]. CHRISTO REFUSED REPORTING PT IS GETTING BAD CARE THERE AND SHE WANTS PT IN A DIFFERENT NURSING FACILITY. CHRISTO ASKED CM TO RECOMMEND [facility]AC[facility]. CM EXPLAINED THAT CM CANNOT RECOMMEND AND OFFERED TO LIST WHAT NURSING HOMES ARE AVAILABLE IN [facility]. CHRISTO STATED SHE WOULD BE TO HOSPITAL IN 45 MINUTES TO DISCUSS THIS AT THAT TIME. CHRISTO VANCE LATER ARRIVED TO PT'S ROOM. CM MET WITH CHRISTO IN PT'S ROOM, CM PROVIDED CHRISTO WITH LISTING OF ALL [facility] FACILITIES WITHIN 25 MILES OF [place] FROM THE MEDICARE WEBSITE WITH CURRENT RATINGS FROM MEDICARE. AFTER REVIEW, CHRISTO COMPLETED CHOICE FOR 1 - [facility] AND 2- [facility]. CHRISTO REPORTS THAT IF [facility] WILL NOT ACCEPT TO THEN SEND REFERRAL TO [facility]. CHRISTO ASKED IF PT IS STAYING THE NIGHT HERE, CM EXPLAINED THAT SHE IS REFUSING TO DISCHARGE PT TO THE [facility], CM WILL HAVE TO SECURE PLACEMENT. CHRISTO IS NOT SURE OF WHAT CATAGORY OF BED PT IS IN AT THE [facility] BUT REPORTS PAYING $10,000 PER MONTH FOR PT'S CARE AND WANTS CM TO GET PT INTO A MEDICARE REHAB BED AT [facility]. CM CALLED THE [facility], SPOKE TO OBDULIO WHO ADVISED PT IS IN [facility]Y BED AND THAT PT DOES NOT HAVE A ISHMAEL, BUT WAS DIAGNOSED WITH MAJOR DEPRESSION BY DR. STERN AT THE [facility] IN April,. PT WILL REQUIRE ISHMAEL APPROVAL TO ENTER [facility] FACILITY. CM CALLED AND SPOKE TO CONY OF [facility], , PROVIDED REFERRAL INFORMATION. CM NOTIFIED CONY OF DAUGHTERS REQUEST FOR REHAB. CM FAXED REFERRAL TO [facility] AT [phone]. CM ATTEMPTED TO MEET WITH PT'S DAUGHTER IN ROOM TO NOTIFY THAT ISHMAEL SCREENING IS REQUIRED, SHE HAD LEFT. CM TO COMPLETE AND SUBMIT ISHMAEL SCREENING AND SUBMIT SOON POSSIBLE. CM WAITING ADMISSION DETERMINATION FROM [facility]. Primer And Powder Canning Leader: Burt Morse DCPIA - Discharge Planning Initial Assessment Updated by [id number]: Burt Morse on 01/04/19 4:41 pm * Is the patient Alert and Oriented? Yes * How many steps to enter\exit or inside your home? NONE * PCP DR STERN * [facility] * Preadmission Environment After [employer] Program Teacher Fdc * Facility Name [facility] * ADLs Partial Dependent * Partial ADLs (Assistance needed) Bathing Medication Management Toileting Transfers * Equipment Rolling Walker * Other Equipment ALL MEDICAL EQUIPMENT PROVIDED BY FACILITY * List name and contact numbers for known caregivers / representatives who currently or will assist patient after discharge: CHRISTO VANCE, DTR, * Verbal permission to speak to the caregivers and representatives has been obtained from the patient. Yes * Community resources currently utilized None * Please name any agencies selected above. NONE * Additional services required to return to the preadmission environment? No * Can the patient safely return to the preadmission environment? Yes * Has this patient been hospitalized within the prior 30 days at any hospital? No Coverage Notice Reviewer: [id number] Sudhir Morse Notice Issued Date-Time: 01/04/2019 16:00 Notice Type: Patient Choice Letter Notice Delivered To: Family Member Relationship to Patient: Relief Mate Name: Delivery Method: HAND - Hand Delivered Rima Days: Prior Verbal Notification: Recipient Understood Notice: Yes Recipient Signature: Yes Med Rec Note Co-signed by Attending: Coverage Notice Comment: [facility] Last DP export: 01/05/19 10:48 Patient Name: JEREMIAS VANCE Page 74114 at 1520 All edits/amendments must be made on the electronic document DICTATION DATE: 01/05/191518 FINANCIAL EXAMINER: LIVIER 01/05/191518 RPT#: [id number] DC DATE: STATUS: ADM IN [facility] [address] [place] [address] END OF REPORT
--- NOTE | 2019-01-05 15:22 | NUR ---
REPORT CALLED TO MAMIE GRIFFIN AT [facility]. PT CHANGED INTO HER CLOTHES. UNABLE TO SIGN D/C PAPERWORK DUE TO ALTERED MENTAL STATUS. DAUGHTER MADE AWARE OF TRANSPORT. D/C INSTRUCTIONS SENT WITH SHOTBLAST OPERATOR. PT LEFT WITH ALL BELONGINGS VIA WHEELCHAIR. NO IV NOTED UPON D/C. MONITOR REMOVED AND RETURNED TO [facility].
== END 2019-01-05 15:27 | DRG 682 ==
LOC: D.ER 09:32 → D.M2 12:56
PROVIDERS: Family Medicine; ADMIT Internal Medicine Nephrology; ATTEND Internal Medicine Nephrology
DX: N17.9 Acute kidney failure, unspecified (principal); G93.41 Metabolic encephalopathy; R40.2114 Coma scale, eyes open, never, 24 hours or more after hospital admission; R40.2344 Coma scale, best motor response, flexion withdrawal, 24 hours or more after hospital admission; R40.2214 Coma scale, best verbal response, none, 24 hours or more after hospital admission; F03.91 Unspecified dementia, unspecified severity, with behavioral disturbance; E87.6 Hypokalemia; E83.42 Hypomagnesemia; J44.9 Chronic obstructive pulmonary disease, unspecified; I48.91 Unspecified atrial fibrillation; I10 Essential (primary) hypertension; E78.5 Hyperlipidemia, unspecified; E11.9 Type 2 diabetes mellitus without complications; G47.33 Obstructive sleep apnea (adult) (pediatric); G89.29 Other chronic pain; M54.9 Dorsalgia, unspecified; F32.9 Major depressive disorder, single episode, unspecified